=== PATIENT | female | born 1995 | race Caucasian/White ===

== ENCOUNTER 2019-06-09 04:57 | Inpatient (IN) | payer OTHER ==
[2019-06-09] MEDS ORDERED: BICITRA 30 ML CUP PO SCH (05:00)
[2019-06-09] MEDS ORDERED: CEFAZOLIN 2 GM-D5W BAG** 2 GM/50 ML ML IV SCH (05:00)
[2019-06-09] MEDS ORDERED: Reglan 10 MG/2 ML IV SCH (05:00)
[2019-06-09] MEDS ORDERED: Pepcid 20 MG VIAL IV SCH (05:00)
[2019-06-09] MEDS: Lactated Ringers 1,000 ML IV SCH ×2 (05:42→05:43)
[2019-06-09 05:46] LABS: INR 0.98 (0.8-3.0); PROTIME 11.1 SECONDS (9.95-12.35)
[2019-06-09 05:48] LABS: PTT 27.1 SECONDS (25.3-37.0)
[2019-06-09 05:54] LABS: Absolute Neutrophil Ct (ANC) 7.13 (1.4-6.9); BASOPHIL % 0.2 % (0.0-0.4); Basophil (Absolute #) 0.02 (0-0.4); Eosinophil % 1.1 % (0.00-5.0); Eosinophil (Absolute #) 0.11 (0-0.5); Hematocrit 31.6 % (35-47); Hemoglobin 10.1 gm/dl (12.0-16.0); Lymphocyte (Absolute #) 2.33 (1.0-4.6); Lymphocytes % 22.6 % (24.0-44.0); Mean Cell Volume 85.6 fl (78-100); Mean Corpuscular Hemoglobin 27.4 pg (26-32); Mean Platelet Volume 9.4 fl (6-9.5); Monocyte (Absolute #) 0.72 (0.0-1.3); Neutrophil % 69.1 % (36.0-66.0); Platelet Count 264 K/mm3 (150-450); Red Blood Count 3.69 M/mm3 (4.1-5.4); Red Cell Distribution Width 13.9 % (11.5-14.0); White Blood Count 10.3 K/mm3 (4.0-10.5)
[2019-06-09 06:09] LABS: ABO TYPING A; Antibody Screen NEGATIVE (NEGATIVE); RH TYPING POSITIVE
[2019-06-09 06:26] LABS: Amphetamine,Urine NEGATIVE (NEGATIVE); Barbiturate,Urine NEGATIVE (NEGATIVE); Benzodiazepine,Urine NEGATIVE (NEGATIVE); Cocaine,Urine NEGATIVE (NEGATIVE); Methadone,Urine NEGATIVE (NEGATIVE); Opiate,Urine NEGATIVE (NEGATIVE); PCP,Urine NEGATIVE (NEGATIVE); THC,Urine NEGATIVE (NEGATIVE)
[2019-06-09] MEDS ORDERED: Astramorph-Pf 5 MG/10 ML ONE (06:51)
[2019-06-09 06:56] LABS: Appearance SLIGHTLY CLOUDY (CLEAR); Bacteria FEW /HPF (NEGATIVE); Bilirubin NEGATIVE (NEGATIVE); Blood MODERATE Ery/ul (0-5); Epithelial Cells RARE /HPF (FEW); Glucose NEGATIVE (NEGATIVE); Ketones NEGATIVE (NEGATIVE); Leukocyte Esterase NEGATIVE (NEGATIVE); Mucus SLIGHT /HPF (NEGATIVE); Nitrite NEGATIVE (NEGATIVE); Protein,Urine Dip NEGATIVE (Negative); RBC 26-50 /HPF (0-2); Specific Gravity 1.018 (1.005-1.025); Urobilinogen 2 mg/dL (0-1); WBC 0-2 /HPF (0-5)
[2019-06-09] MEDS ORDERED: Xylocaine-Mpf 2% 5 Ml Vial ONE (06:57)
[2019-06-09] MEDS ORDERED: Naropin 0.5% 30 ML VIAL ONE (06:57)
[2019-06-09] MEDS ORDERED: Decadron 4 MG INJ ONE ×2 (06:57→07:02)
[2019-06-09] MEDS ORDERED: Zofran 4 MG/2 ML VIAL ONE (07:02)
[2019-06-09] MEDS ORDERED: Pitocin 10 UNITS/ML ONE (07:02)
[2019-06-09] MEDS ORDERED: DEMEROL 50 MG ONE (08:35)
[2019-06-09] MEDS ORDERED: Lactated Ringers 1,000 ML IV ONE (08:37)
--- NOTE | 2019-06-09 09:06 | OP ---
SURGERY DATE/TIME: 06/09/2019718 PREOPERATIVE DIAGNOSES: 1) Term intrauterine . 2) History of prior section. 3) Isolated elevated blood pressure during . POSTOPERATIVE DIAGNOSES: 1) Term intrauterine . 2) History of prior section. 3) Isolated elevated blood pressure during . PROCEDURE: Repeat low transverse section. SURGEON: Estevan Lau M.D. ESTIMATED BLOOD LOSS: 300 cc. IV FLUIDS: 2 liters of crystalloid. URINE OUTPUT: 50 cc of clear straw-colored urine. ANESTHESIA: Spinal by Daljit Hernadnez CRNA. SPECIMENS: None. DESCRIPTION OF PROCEDURE: After informed written consent was obtained, the patient was taken to the operating room. She was prepped and draped in the usual sterile fashion after she underwent spinal anesthesia. A low transverse skin incision was made by knife and carried down through the subcutaneous fat to the level of the fascia and was nicked on both sides of the midline and extended horizontally using curved Mandel scissors. The superior free edge of the fascia was grasped with Henrik clamps and the underlying rectus muscles were dissected free. The same was repeated inferiorly. The opening of the peritoneal cavity was extended in horizontal fashion and then a bladder blade was inserted and a bladder flap was created and reflected over the lower uterine segment. Uterine incision was made horizontal by knife and carried down to the level of the amniotic membranes which were carefully artificially ruptured. A viable female infant delivered from the vertex presentation with a strong cry immediately upon delivery. The oropharynx and nares were bulb suctioned free on the operative field. The cord was clamped and cut and she was handed off to the awaiting nursery team. The placenta was manually extracted from the uterine cavity and the uterus was exteriorized. The uterine cavity was wiped free of blood and clot with lap sponge. The uterine incision was closed with #1 chromic in a running locked fashion. Good closure and good hemostasis were achieved. The posterior cul-de-sac was wiped free of blood and clot with moist lap sponge and the uterus was returned to the peritoneal cavity. Lateral gutters were wiped free of blood and clot. Again, the uterine incision was inspected and noted to be hemostatic. The fascia was closed with 0 Vicryl in a running fashion. Good closure and good hemostasis were achieved. The subcutaneous fat was then irrigated with warm, sterile saline. Any areas of bleeding were cauterized with electrocautery. Finally, the skin layer was closed with 4-0 undyed Vicryl in a running subcuticular fashion. Steri-Strips and occlusive dressing were placed over the incision. The patient was transferred to the recovery room in good condition.
[2019-06-09 09:13] LABS: Amourphous Crystal FEW /HPF (NEGATIVE); Bacteria RARE /HPF (NEGATIVE); Epithelial Cells RARE /HPF (FEW); Mucus SLIGHT /HPF (NEGATIVE); RBC 26-50 /HPF (0-2); WBC 0-2 /HPF (0-5)
[2019-06-09 09:19] LABS: Appearance CLEAR (CLEAR); Bilirubin NEGATIVE (NEGATIVE); Glucose NEGATIVE (NEGATIVE); Ketones NEGATIVE (NEGATIVE); Leukocyte Esterase NEGATIVE (NEGATIVE); Nitrite NEGATIVE (NEGATIVE); Protein,Urine Dip NEGATIVE (Negative); Urobilinogen 0.2 mg/dL (0-1)
[2019-06-09 09:20] LABS: Blood 250 Ery/ul (0-5)
[2019-06-09] MEDS ORDERED: CORTISONE 1% CREAM TP PRN (10:00)
[2019-06-09] MEDS ORDERED: Dextrose 5%-Lr IV Solution 1000 ML 1,000 ML IV SCH (10:00)
[2019-06-09] MEDS ORDERED: Mylicon 80MG PO PRN (10:00)
[2019-06-09] MEDS ORDERED: MORPHINE SULFATE 2 MG INJ IV PRN (10:00)
[2019-06-09] MEDS ORDERED: Ambien 10 MG PO PRN (10:00)
[2019-06-09] MEDS ORDERED: CLARITIN 10 MG PO PRN (10:00)
[2019-06-09] MEDS ORDERED: PERCOCET TABLET 5/325MG PO PRN (10:00)
[2019-06-09] MEDS ORDERED: HOLD NARCOTIC ANALGESICS AND SEDATIVES X24 HR MC PRN (10:00)
[2019-06-09] MEDS ORDERED: Anucort-HC SUPPOSITORY PR PRN (10:00)
[2019-06-09] MEDS ORDERED: Dulcolax 10 MG SUPP PR PRN (10:00)
[2019-06-09] MEDS ORDERED: LANSINOH 40 GM TOP PRN (10:00)
[2019-06-09] MEDS ORDERED: Narcan 0.4 MG/ML IV PRN (10:00)
[2019-06-09] MEDS ORDERED: Zofran 4 MG/2 ML VIAL IV PRN (10:00)
[2019-06-09] MEDS ORDERED: TYLENOL EXTRA STRENGTH 500 MG PO PRN (10:00)
[2019-06-09] MEDS ORDERED: Nubain 10 MG/ML IV PRN (10:00)
[2019-06-09] MEDS ORDERED: BENADRYL 50 MG/ML IV PRN (10:00)
[2019-06-09] MEDS: Colace 100 MG PO SCH (22:28)
[2019-06-10 06:06] LABS: Absolute Neutrophil Ct (ANC) 11.09 (1.4-6.9); BASOPHIL % 0.1 % (0.0-0.4); Basophil (Absolute #) 0.02 (0-0.4); Eosinophil % 0.3 % (0.00-5.0); Eosinophil (Absolute #) 0.04 (0-0.5); Hematocrit 28.5 % (35-47); Hemoglobin 9.1 gm/dl (12.0-16.0); Lymphocytes % 19.5 % (24.0-44.0); Mean Cell Volume 87.2 fl (78-100); Mean Corpuscular Hemoglobin 27.8 pg (26-32); Mean Corpuscular Hgb Concent. 31.9 g/dl (32-36); Mean Platelet Volume 9.4 fl (7.5-11.0); Monocyte (Absolute #) 1.24 (0.0-1.3); Monocytes % 8.1 % (0.0-12.0); Platelet Count 245 K/mm3 (150-450); Red Blood Count 3.27 M/mm3 (4.1-5.4); Red Cell Distribution Width 13.9 % (11.5-14.0); White Blood Count 15.4 K/mm3 (4.0-10.5)
[2019-06-10] MEDS: Colace 100 MG PO SCH ×2 (09:41→21:54)
[2019-06-10] MEDS: FERREX 150 PO SCH (09:41)
[2019-06-10] MEDS ORDERED: NORCO 5/325 MG PO PRN (10:00)
[2019-06-10] MEDS ORDERED: DEMEROL 50 MG IV PRN (10:00)
[2019-06-10] MEDS: MOTRIN 400 MG PO PRN (18:51)
[2019-06-10 20:07] VITALS: O2SAT 98
[2019-06-11] MEDS: FERREX 150 PO SCH (09:07)
[2019-06-11] MEDS: Colace 100 MG PO SCH (09:07)
[2019-06-11] MEDS: MOTRIN 400 MG PO PRN (11:08)
--- NOTE | 2019-06-11 13:14 | PCM.DS ---
Discharge Summary Date of Admission: 06/09/19 04:57 Admitting Physician: HILARIO AGUILAR Consults: Consults on Case 06/09/19 00:00 Notify Anesthesia Provider PRN Notify Physician OF ADMISSION 06/09/19 10:00 Notify Physician ROUTINE Primary Care Provider: HILARIO AGUILAR Allergies Allergies No Known Drug Allergies Allergy (Verified 11/21/18 10:37) Hospital Summary - Hospital Course Hospital Course: Pt is a 23 yo female pt of Dr. Aguilar who came in as at term for repeat c/ section. For full details, see Dr. Aguilar' operative note. She had no complications, has been recovering well with minimal pain. Up out of bed. . Will be discharged home today on iron and ibuprofen prn. F/u with Dr. Aguilar in 1 week. - Vitals & Intake/Output Vital Signs: Vital Signs Temperature 98.6 F 06/11/19 08:00 Pulse Rate 85 06/11/19 08:00 Respiratory Rate 18 06/11/19 08:00 Blood Pressure 130/68 06/11/19 08:00 O2 Sat by Pulse Oximetry 98 06/11/19 01:00 Intake & Output: Intake & Output 06/09/19 06/10/19 06/11/19 06/12/19 11:59 11:59 11:59 11:59 Intake Total 3789 2150 Output Total 4700 Balance -911 2150 Weight 112.945 kg - Lab Result Diagrams: 06/10/19 05:13 Micro Results-Entire Visit: Microbiology 06/09/19 07:33 Urine Culture - Final Clean Catch Midstream MIXED MEGAN; 3 OR MORE TYPES. NO PREDOMINANT ORGANISM. NO FURTHER WORKUP. PLEASE RESUBMIT IF CLINICALLY INDICATED. 06/09/19 06:07 Urine Culture - Final Urine, Void NO GROWTH - Procedures and Test Procedures and Tests throughout Hospitalization: Therapy Orders & Screens 06/09/19 09:11 Standby Routine Comment: Diagnosis: Post Op Discharge Exam General Appearance: no apparent distress, alert Neurologic Exam: oriented x 3, cooperative Eye Exam: eyes nml inspection Ears, Nose, Throat Exam: moist mucous membranes Neck Exam: normal inspection Respiratory Exam: normal breath sounds, lungs clear, No crackles/rales, No rhonchi, No wheezing Cardiovascular Exam: regular rate/rhythm, normal heart sounds, No murmur Gastrointestinal/Abdomen Exam: soft, other (fundus firm under umbilicus. Wound c/d/i), No tenderness Extremity Exam: normal inspection, No swelling Skin Exam: normal color, warm, dry, No rash Final Diagnosis/Problem List - Final Discharge Diagnosis/Problem (1) delivery delivered Current Visit: No Status: Acute Assessment & Plan: POD #2, doing great, home today with baby. Code(s): O82 - ENCOUNTER FOR DELIVERY WITHOUT INDICATION (2) Anemia Current Visit: Yes Status: Acute Assessment & Plan: Home on FeSO4 325 mg once daily x 1 mo. Code(s): D64.9 - ANEMIA, UNSPECIFIED - Discharge Disposition: Home, Self-Care Condition: Good Prescriptions: New Ferrous Sulfate 325 mg [Feosol 325 mg] 325 mg PO DAILY #30 tablet Ibuprofen 800 mg PO TID PRN #35 tablet PRN Reason: Pain Continue Vit Calc,Iron,Folic [ Vitamins] 1 tab PO DAILY Follow up with: HILARIO AGUILAR MD [Primary Care Provider] - 1 Week
[2019-06-11 14:26] VITALS: BP 140/66; PULSE 95
== END 2019-06-11 13:40 | disposition home or self-care (01) | DRG 788 ==
LOC: OB 04:57
PROVIDERS: ADMIT Family Medicine; ATTEND Family Medicine
PROC: 10D00Z1 Extraction of Products of Conception, Low, Open Approach (ICD-10-PCS; principal; 2019-06-09)
DX: O34.211 Maternal care for low transverse scar from previous cesarean delivery (principal); Z3A.38 38 weeks gestation of pregnancy; Z37.0 Single live birth; D64.9 Anemia, unspecified
CPT/HCPCS: 36415; 64488; 76937; 76942; 80307; 81001; 85025; 85610; 85730; 86850; 86900; 86901; 87086; 87340; 94799; J0690; J1100; J2175; J2274; J2405; J2590; J2795; L0625; A9270-GY

== ENCOUNTER 2020-08-17 19:41 | Emergency (ER) | payer OTHER ==
[2020-08-17] MEDS ORDERED: BENADRYL 50 MG/ML IV ONE (20:05)
[2020-08-17] MEDS ORDERED: PROTONIX 40 MG IV IV ONE ×2 (20:05→20:13)
[2020-08-17] MEDS ORDERED: MORPHINE SULFATE 4 MG INJ IV ONE (20:05)
[2020-08-17] MEDS ORDERED: Zofran 4 MG/2 ML VIAL IV ONE (20:05)
[2020-08-17] MEDS ORDERED: Pepcid 20 MG VIAL IV ONE ×2 (20:05→20:12)
[2020-08-17] MEDS ORDERED: Sodium Chloride 0.9% 1000 ML 1,000 ML IV STA (20:05)
[2020-08-17] MEDS ORDERED: TORAdol 30 mg Injection IV ONE (20:08)
[2020-08-17] MEDS ORDERED: Norflex 60 MG/2 ML IM ONE (20:08)
[2020-08-17] MEDS ORDERED: BENADRYL 50 MG/ML ONE (20:12)
[2020-08-17] MEDS ORDERED: Zofran 4 MG/2 ML VIAL ONE (20:12)
[2020-08-17] MEDS ORDERED: TORAdol 30 mg Injection ONE (20:12)
[2020-08-17] MEDS ORDERED: Norflex 60 MG/2 ML ONE (20:13)
[2020-08-17] MEDS ORDERED: MORPHINE SULFATE 4 MG INJ ONE (20:13)
[2020-08-17] MEDS ORDERED: Sodium Chloride 0.9% 1000 ML 1,000 ML ONE (20:13)
--- NOTE | 2020-08-17 20:18 | ERPHSYRPT ---
- History of Present Illness Time Seen by Provider: 08/17/20 20:13 Historian: patient Exam Limitations: no limitations Patient Subjective Stated Complaint: Right upper abdomen into flank area hurts. Triage Nursing Assessment: Alert and oriented x 3. Able to voice wants and needs. Tearful. Right abdomen painful upon palpation. Right upper back painful. Guarding abdomen. Bowel sounds present x 4. quads. Physician History: pt had onset of RUQ abd pain radiating into back and right chest . no cough fever or sobreath. No vomiting but does also have right lateral flank and back pain . no trauma. spine is nontender. no IV drug use reported. No prior events of these symptoms. RUQ is tender and right flank tender . discussed risk/benefit of CT and pt wishes to proceed. no peritoneal signs. no neuro deficits or findings; lungs clear. no reported discharge or vag symptoms. denies urinary symptoms. Timing/Duration: today Activities at Onset: none Quality: sharpness, stabbing, throbbing Abdominal Pain Onset Location: RUQ Pain Radiation: RUQ, back, other (right lateral chest with muscle tenderness reporducing) Severity of Pain-Max: moderate Severity of Pain-Current: moderate Modifying Factors: Improves With: movement, position Associated Symptoms: back, nausea, No diaphoresis, No diarrhea, No neck pain, No rash, No shortness of breath, No vomiting Previous symptoms: no prior history Allergies/Adverse Reactions: No Known Drug Allergies Allergy (Verified 11/21/18 10:37) Home Medications: Multivitamin 1 each PO DAILY 08/17/20 [History] Hx Tetanus, Diphtheria Vaccination/Date Given: Yes Hx Influenza Vaccination/Date Given: No Hx Pneumococcal Vaccination/Date Given: No Travel Risk - International Travel Have you traveled outside of the country in past 3 weeks: No - Coronavirus Screening Are you exhibiting any of the following symptoms?: No - Review of Systems Constitutional: No Fever, No Chills Eyes: No Symptoms Ears, Nose, & Throat: No Symptoms Respiratory: No Cough, No Dyspnea Cardiac: No Chest Pain, No Edema, No Syncope Abdominal/Gastrointestinal: Abdominal Pain, Nausea, No Vomiting, No Diarrhea Genitourinary Symptoms: No Dysuria Musculoskeletal: Back Pain, No Neck Pain Skin: No Rash Neurological: No Dizziness, No Focal Weakness, No Sensory Changes Psychological: No Symptoms Endocrine: No Symptoms Hematologic/Lymphatic: No Symptoms Immunological/Allergic: No Symptoms All Other Systems: Reviewed and Negative - Past Medical History Pertinent Past Medical History: No Neurological History: No Pertinent History ENT History: No Pertinent History Cardiac History: No Pertinent History Respiratory History: No Pertinent History Endocrine Medical History: No Pertinent History Musculoskeletal History: No Pertinent History GI Medical History: No Pertinent History History: No Pertinent History Psycho-Social History: No Pertinent History Female Reproductive Disorders: No Pertinent History - Past Surgical History Past Surgical History: Yes Neuro Surgical History: No Pertinent History Cardiac: No Pertinent History Respiratory: No Pertinent History Gastrointestinal: No Pertinent History Genitourinary: No Pertinent History Musculoskeletal: No Pertinent History Female Surgical History: Section - Social History Smoking Status: Never smoker Exposure to second hand smoke: No Drug Use: none Patient Lives Alone: No - Female History Hx Now: No (await HCG) - Nursing Vital Signs Nursing Vital Signs: Initial Vital Signs Temperature 98.4 F 08/17/20 19:41 Pulse Rate 87 08/17/20 19:41 Respiratory Rate 24 08/17/20 19:41 Blood Pressure 133/90 08/17/20 19:41 O2 Sat by Pulse Oximetry 100 08/17/20 19:41 Pain Scale Pain Intensity 10 - Physical Exam General Appearance: mild distress, alert Eye Exam: PERRL/EOMI, eyes nml inspection Ears, Nose, Throat Exam: normal ENT inspection, pharynx normal, moist mucous membranes Neck Exam: normal inspection, non-tender, supple, full range of motion Respiratory Exam: normal breath sounds, chest tenderness (right lateral), lungs clear, No respiratory distress Cardiovascular Exam: regular rate/rhythm, normal heart sounds Gastrointestinal/Abdomen Exam: soft, tenderness, No mass, No pulsatile mass, No rebound Pelvic Exam: deferred Rectal Exam: deferred Back Exam: normal inspection, normal range of motion, No CVA tenderness, No vertebral tenderness Extremity Exam: normal inspection, normal range of motion, pelvis stable Neurologic Exam: alert, oriented x 3, cooperative, normal mood/affect, nml cerebellar function, sensation nml, No motor deficits Skin Exam: normal color, warm, dry SpO2 Interpretation: normal SpO2: 100 O2 Delivery: Room Air - Course Nursing assessment & vital signs reviewed: Yes - Radiology Exams Chest X-ray Interpretation: Reviewed by me, Other (perihilar haziness , no definte infiltrates.) - CT Exams Abdomen/Pelvis CT Interpretation: Tele-radiologist Report, No appendicitis, Other (kidney stone nonobst; gallstone without cholecystitis) Ordered Tests: Active Orders 24 hr Category Date Time Status IV Insertion STAT Care 08/17/20 20:05 Active NPO (ED) STAT Care 08/17/20 20:05 Active ABDOMEN AND PELVIS W/0 CONTRAS [CT] Stat Exams 08/17/20 20:06 Taken CHEST 2 VIEWS (PA AND LAT) Stat Exams 08/17/20 20:06 Taken AMYLASE Stat Lab 08/17/20 20:10 Completed CBC W DIFF Stat Lab 08/17/20 20:10 Completed CMP Stat Lab 08/17/20 20:10 Completed HCG QUALITATIVE,SERUM Stat Lab 08/17/20 20:10 Completed LIPASE Stat Lab 08/17/20 20:10 Completed Lactic Acid Stat Lab 08/17/20 20:20 Completed UA W/RFX UR CULTURE Stat Lab 08/17/20 20:10 Completed Medication Summary Discontinued Medications Generic Name Dose Route Start Last Admin Trade Name Freq PRN Reason Stop Dose Admin Diphenhydramine HCl 25 mg 08/17/20 20:05 08/17/20 20:27 Benadryl 50 Mg/Ml IV 08/17/20 20:06 25 mg STAT ONE Administration Diphenhydramine HCl Confirm 08/17/20 20:12 Benadryl 50 Mg/Ml Administered 08/17/20 20:13 Dose 50 mg .ROUTE .STK-MED ONE Famotidine 20 mg 08/17/20 20:05 08/17/20 20:26 Pepcid 20 Mg Vial IV 08/17/20 20:06 20 mg STAT ONE Administration Famotidine Confirm 08/17/20 20:12 Pepcid 20 Mg Vial Administered 08/17/20 20:13 Dose 20 mg IV .STK-MED ONE Sodium Chloride 1,000 mls @ 999 mls/hr 08/17/20 20:05 08/17/20 20:25 Sodium Chloride 0.9% 1000 Ml IV 08/17/20 21:05 999 mls/hr .Q1H1M STA Administration Sodium Chloride Confirm 08/17/20 20:13 Sodium Chloride 0.9% 1000 Ml Administered 08/17/20 20:14 Dose 1,000 mls @ ud .ROUTE .STK-MED ONE Ketorolac Tromethamine 30 mg 08/17/20 20:08 08/17/20 20:26 Toradol 30 Mg Injection IV 08/17/20 20:09 30 mg STAT ONE Administration Ketorolac Tromethamine Confirm 08/17/20 20:12 Toradol 30 Mg Injection Administered 08/17/20 20:13 Dose 30 mg .ROUTE .STK-MED ONE Morphine Sulfate 4 mg 08/17/20 20:05 08/17/20 20:26 Morphine Sulfate 4 Mg Inj IV 08/17/20 20:06 4 mg STAT ONE Administration Morphine Sulfate Confirm 08/17/20 20:13 Morphine Sulfate 4 Mg Inj Administered 08/17/20 20:14 Dose 4 mg .ROUTE .STK-MED ONE Ondansetron HCl 4 mg 08/17/20 20:05 08/17/20 20:27 Zofran 4 Mg/2 Ml Vial IV 08/17/20 20:06 4 mg STAT ONE Administration Ondansetron HCl Confirm 08/17/20 20:12 Zofran 4 Mg/2 Ml Vial Administered 08/17/20 20:13 Dose 4 mg .ROUTE .STK-MED ONE Orphenadrine Citrate 60 mg 08/17/20 20:08 08/17/20 20:26 Norflex 60 Mg/2 Ml IM 08/17/20 20:09 60 mg STAT ONE Administration Orphenadrine Citrate Confirm 08/17/20 20:13 Norflex 60 Mg/2 Ml Administered 08/17/20 20:14 Dose 60 mg .ROUTE .STK-MED ONE Pantoprazole Sodium 40 mg 08/17/20 20:05 08/17/20 20:25 Protonix 40 Mg Iv IV 08/17/20 20:06 40 mg STAT ONE Administration Pantoprazole Sodium Confirm 08/17/20 20:13 Protonix 40 Mg Iv Administered 08/17/20 20:14 Dose 40 mg IV .STK-MED ONE Lab/Rad Data: Laboratory Result Diagrams 08/17/20 20:10 08/17/20 20:10 Laboratory Results 08/17/20 08/17/20 08/17/20 Range/Units 20:20 20:10 20:10 WBC (4.0-10.5) K/mm3 RBC (4.1-5.4) M/mm3 Hgb (12.0-16.0) gm/dl Hct (35-47) % MCV (78-100) fl MCH (26-32) pg MCHC (32-36) g/dl RDW (11.5-14.0) % Plt Count (150-450) K/mm3 MPV (7.5-11.0) fl Gran % (36.0-66.0) % Eos # (Auto) (0-0.5) Absolute Lymphs (auto) (1.0-4.6) Absolute Monos (auto) (0.0-1.3) Lymphocytes % (24.0-44.0) % Monocytes % (0.0-12.0) % Eosinophils % (0.00-5.0) % Basophils % (0.0-0.4) % Absolute Granulocytes (1.4-6.9) Basophils # (0-0.4) Sodium 139 (137-145) mmol/L Potassium 4.0 (3.5-5.1) mmol/L Chloride 103 (98-107) mmol/L Carbon Dioxide 28 (22-30) mmol/L Anion Gap 12.4 (5-15) MEQ/L BUN 15 (7-17) mg/dL Creatinine 0.82 (0.52-1.04) mg/dL Estimated GFR > 60.0 ML/MIN Glucose 116 H (74-106) mg/dL Lactic Acid 1.1 (0.4-2.0) Calcium 9.9 (8.4-10.2) mg/dL Total Bilirubin 0.20 (0.2-1.3) mg/dL AST 22 (14-36) U/L ALT 24 (0-35) U/L Alkaline Phosphatase 85 (38-126) U/L Serum Total Protein 8.0 (6.3-8.2) g/dL Albumin 4.8 (3.5-5.0) g/dL Amylase 52 (30-110) U/L Lipase 80 (23-300) U/L Serum , Qual NEGATIVE (Negative) Urine Color (YELLOW) Urine Appearance (CLEAR) Urine pH (5-6) Ur Specific [place] (1.005-1.025) Urine Protein (Negative) Urine Ketones (NEGATIVE) Urine Blood (0-5) Santos/ul Urine Nitrite (NEGATIVE) Urine Bilirubin (NEGATIVE) Urine Urobilinogen (0-1) mg/dL Ur Leukocyte Esterase (NEGATIVE) Urine WBC (Auto) (0-5) /HPF Urine RBC (Auto) (0-2) /HPF U Epithel Cells (Auto) (FEW) /HPF Urine Bacteria (Auto) (NEGATIVE) /HPF Urine Mucus (Auto) (NEGATIVE) /HPF Urine Culture Reflexed (NO) Urine Glucose (NEGATIVE) mg/dL 08/17/20 08/17/20 Range/Units 20:10 20:10 WBC 12.9 H (4.0-10.5) K/mm3 RBC 4.64 (4.1-5.4) M/mm3 Hgb 12.5 (12.0-16.0) gm/dl Hct 39.0 (35-47) % MCV 84.1 (78-100) fl MCH 26.9 (26-32) pg MCHC 32.1 (32-36) g/dl RDW 14.2 H (11.5-14.0) % Plt Count 347 (150-450) K/mm3 MPV 9.3 (7.5-11.0) fl Gran % 58.1 (36.0-66.0) % Eos # (Auto) 0.14 (0-0.5) Absolute Lymphs (auto) 4.37 (1.0-4.6) Absolute Monos (auto) 0.88 (0.0-1.3) Lymphocytes % 33.8 (24.0-44.0) % Monocytes % 6.8 (0.0-12.0) % Eosinophils % 1.1 (0.00-5.0) % Basophils % 0.2 (0.0-0.4) % Absolute Granulocytes 7.51 H (1.4-6.9) Basophils # 0.02 (0-0.4) Sodium (137-145) mmol/L Potassium (3.5-5.1) mmol/L Chloride (98-107) mmol/L Carbon Dioxide (22-30) mmol/L Anion Gap (5-15) MEQ/L BUN (7-17) mg/dL Creatinine (0.52-1.04) mg/dL Estimated GFR ML/MIN Glucose (74-106) mg/dL Lactic Acid (0.4-2.0) Calcium (8.4-10.2) mg/dL Total Bilirubin (0.2-1.3) mg/dL AST (14-36) U/L ALT (0-35) U/L Alkaline Phosphatase (38-126) U/L Serum Total Protein (6.3-8.2) g/dL Albumin (3.5-5.0) g/dL Amylase (30-110) U/L Lipase (23-300) U/L Serum , Qual (Negative) Urine Color YELLOW (YELLOW) Urine Appearance SLIGHTLY CLOUDY (CLEAR) Urine pH 6.0 (5-6) Ur Specific [place] 1.024 (1.005-1.025) Urine Protein NEGATIVE (Negative) Urine Ketones NEGATIVE (NEGATIVE) Urine Blood NEGATIVE (0-5) Santos/ul Urine Nitrite NEGATIVE (NEGATIVE) Urine Bilirubin NEGATIVE (NEGATIVE) Urine Urobilinogen NEGATIVE (0-1) mg/dL Ur Leukocyte Esterase NEGATIVE (NEGATIVE) Urine WBC (Auto) NONE (0-5) /HPF Urine RBC (Auto) 3-5 (0-2) /HPF U Epithel Cells (Auto) RARE (FEW) /HPF Urine Bacteria (Auto) NONE (NEGATIVE) /HPF Urine Mucus (Auto) SLIGHT (NEGATIVE) /HPF Urine Culture Reflexed NO (NO) Urine Glucose NEGATIVE (NEGATIVE) mg/dL - Progress Progress: improved, re-examined Progress Note: 08/17/20 22:39 pt is advised of the limitations of testing performed and that undetected pathology could still be evolving. she understands that we have not yet determined the exact cause of her symptoms, but - is pain free now , and wishes outpt f/u rather than further eval in hosp or ED at this time and has the capacity to make that choice. Counseled pt/family regarding: lab results, diagnosis, need for follow-up, rad results - Departure Departure Disposition: Home Clinical Impression: Right-sided chest wall pain, Right kidney stone, Cholelithiasis Condition: Good Critical Care Time: No Referrals: HILARIO AGUILAR MD [Primary Care Provider] - Instructions: Gallstones (DC), Kidney Stones (DC), Muscle Strain (DC), Back Muscle Strain (DC) Additional Instructions: we have not determined a precise cause for your pain, although there are gallstones and kidney stones which may have contributed. THere may have been muscle pain from your back or ribs also and the muscle relaxer will help that as well as alleve. Followup with your Dr. for further workup and return meantime if recurring or other symptoms of concern. Prescriptions: Orphenadrine Citrate 100 mg [Norflex 100 MG Tablet] 100 mg PO BID PRN PRN 10 Days #20 tab PRN Reason: Pain
[2020-08-17 20:29] LABS: Absolute Neutrophil Ct (ANC) 7.51 (1.4-6.9); BASOPHIL % 0.2 % (0.0-0.4); Basophil (Absolute #) 0.02 (0-0.4); Eosinophil % 1.1 % (0.00-5.0); Eosinophil (Absolute #) 0.14 (0-0.5); Hemoglobin 12.5 gm/dl (12.0-16.0); Lymphocyte (Absolute #) 4.37 (1.0-4.6); Lymphocytes % 33.8 % (24.0-44.0); Mean Cell Volume 84.1 fl (78-100); Mean Corpuscular Hemoglobin 26.9 pg (26-32); Mean Corpuscular Hgb Concent. 32.1 g/dl (32-36); Mean Platelet Volume 9.3 fl (7.5-11.0); Monocyte (Absolute #) 0.88 (0.0-1.3); Monocytes % 6.8 % (0.0-12.0); Neutrophil % 58.1 % (36.0-66.0); Platelet Count 347 K/mm3 (150-450); Red Blood Count 4.64 M/mm3 (4.1-5.4); Red Cell Distribution Width 14.2 % (11.5-14.0); White Blood Count 12.9 K/mm3 (4.0-10.5)
[2020-08-17 20:37] LABS: Appearance SLIGHTLY CLOUDY (CLEAR); Bilirubin NEGATIVE (NEGATIVE); Blood NEGATIVE Ery/ul (0-5); Epithelial Cells RARE /HPF (FEW); Glucose NEGATIVE (NEGATIVE); Ketones NEGATIVE (NEGATIVE); Leukocyte Esterase NEGATIVE (NEGATIVE); Mucus SLIGHT /HPF (NEGATIVE); Nitrite NEGATIVE (NEGATIVE); Protein,Urine Dip NEGATIVE (Negative); Specific Gravity 1.024 (1.005-1.025); Urobilinogen NEGATIVE mg/dL (0-1)
[2020-08-17 20:43] LABS: ALBUMIN 4.8 g/dL (3.5-5.0); ALKALINE PHOSPHATASE 85 U/L (38-126); AMYLASE 52 U/L (30-110); ANION GAP 12.4 MEQ/L (5-15); BLOOD UREA NITROGEN 15 mg/dL (7-17); CHLORIDE 103 mmol/L (98-107); Calcium 9.9 mg/dL (8.4-10.2); Carbon Dioxide 28 mmol/L (22-30); Creatinine 1 0.82 mg/dL (0.52-1.04); EST GLOMERULAR FILTRATION RATE > 60.0 ML/MIN; Glucose 116 mg/dL (74-106); LIPASE 80 U/L (23-300); SGOT/AST 22 U/L (14-36); SGPT/ALT 24 U/L (0-35); SODIUM 139 mmol/L (137-145)
[2020-08-17 22:54] VITALS: BP 99/57; PULSE 94; O2SAT 99
--- NOTE | 2020-08-18 07:46 | XRAY ---
Indication: Right chest pain. Comparison: March 30, 2009. PA/lateral chest demonstrates normal heart, lungs, and bony thorax.
--- NOTE | 2020-08-18 07:46 | XRAY ---
Indication: Right upper quadrant pain. Nausea. Elevated WBC. Multiple contiguous axial images obtained through the abdomen and pelvis without contrast. Comparison: January 10, 2016. Lung bases are clear. Heart is not enlarged. Stomach is mildly fluid distended with presumed ingested medication/bismuth. Noncontrasted bowel loops appear nonobstructed. Normal appendix. There is again mild diffuse scattered colonic fecal debris throughout. Gallbladder again demonstrates multiple centimeter/subcentimeter stones. Stable nonobstructing punctate right renal calculus. No free fluid/air. Remaining liver, pancreas, spleen, adrenal glands, kidneys, ureters, bladder, uterus, and aorta appear unremarkable for noncontrast exam. Osseous structures intact. No ventral or inguinal hernias. Impression: 1. Again cholelithiasis. Gallbladder sonogram may yield further information if clinically warranted. 2. Again diffuse fecal stasis without obstruction and nonobstructing right renal microcalculus. Comment: Preliminary interpretation was made by [facility]. No critical discrepancy.
== END 2020-08-17 23:04 | disposition home or self-care (01) ==
LOC: ED 19:41
DX: R07.89 Other chest pain (principal); N20.0 Calculus of kidney; K80.20 Calculus of gallbladder without cholecystitis without obstruction
CPT/HCPCS: 36000; 36415; 71046; 74176; 80053; 81001; 81025; 82150; 83605; 83690; 85025; 96372; 96374; 96375; 99284; J1200; J1885; J2270; J2360; J2405

== ENCOUNTER 2021-03-10 09:56 | Emergency (ER) | payer OTHER ==
[2021-03-10] MEDS ORDERED: TORAdol 30 mg Injection IV ONE (10:05)
[2021-03-10] MEDS ORDERED: Zofran 4 MG/2 ML VIAL ONE (10:11)
[2021-03-10] MEDS ORDERED: TORAdol 30 mg Injection ONE (10:11)
[2021-03-10] MEDS ORDERED: Zofran 4 MG/2 ML VIAL IV ONE (10:13)
--- NOTE | 2021-03-10 10:33 | ERPHSYRPT ---
- History of Present Illness Historian: patient Exam Limitations: no limitations Patient Subjective Stated Complaint: co pain to right side of abd today with vomiting x2 Triage Nursing Assessment: pt alert resp easy, skin w/dp. abd soft , abd soft Physician History: 25 yo wf w R flank pain since 4:00AM. Pain is 8/10, sharp, accompanied by N/V. Nothing makes the pain better or worse. She denies dysuria/hematuria/frequency/fever/diarrhea/constipation/melena hematochezia. Her gallbladder has been removed. Timing/Duration: other (4:00AM) Quality: sharpness Abdominal Pain Onset Location: other (R flank) Pain Radiation: no radiation Severity of Pain-Max: severe Severity of Pain-Current: severe Modifying Factors: Improves With: nothing Associated Symptoms: back, nausea, vomiting, No chest pain, No diaphoresis, No diarrhea, No fever/chills, No fatigue, No headache, No heartburn, No loss of appetite, No neck pain, No rash, No shortness of breath, No syncope, No weakness Previous symptoms: same symptoms as today (W cholelithiasis(s-p oskar)) Allergies/Adverse Reactions: No Known Drug Allergies Allergy (Verified 03/10/21 09:59) Hx Tetanus, Diphtheria Vaccination/Date Given: Yes Hx Influenza Vaccination/Date Given: No Hx Pneumococcal Vaccination/Date Given: No Immunizations Up to Date: Yes Travel Risk - International Travel Have you traveled outside of the country in past 3 weeks: No - Coronavirus Screening Are you exhibiting any of the following symptoms?: No Symptoms: Shortness of Breath Close contact with a COVID-19 positive Pt in past 14-21 Days: No - Vaccine Status Have you recieved a Covid-19 vaccination: No - Review of Systems Constitutional: No Symptoms Eyes: No Symptoms Ears, Nose, & Throat: No Symptoms Respiratory: No Symptoms Cardiac: No Symptoms Abdominal/Gastrointestinal: Nausea, Vomiting, No Diarrhea, No Constipation, No Hematemesis, No Hematochezia, No Melena, No Dysphagia, No Appetite Changes Genitourinary Symptoms: No Symptoms Musculoskeletal: No Symptoms Skin: No Symptoms Neurological: No Symptoms Psychological: No Symptoms Endocrine: No Symptoms Hematologic/Lymphatic: No Symptoms Immunological/Allergic: No Symptoms - Past Medical History Pertinent Past Medical History: No Neurological History: No Pertinent History ENT History: No Pertinent History Cardiac History: No Pertinent History Respiratory History: No Pertinent History Endocrine Medical History: No Pertinent History Musculoskeletal History: No Pertinent History GI Medical History: No Pertinent History History: No Pertinent History Psycho-Social History: No Pertinent History Female Reproductive Disorders: No Pertinent History - Past Surgical History Past Surgical History: Yes Neuro Surgical History: No Pertinent History Cardiac: No Pertinent History Respiratory: No Pertinent History Gastrointestinal: Cholecystectomy Genitourinary: No Pertinent History Musculoskeletal: No Pertinent History Female Surgical History: Section - Social History Smoking Status: Never smoker Exposure to second hand smoke: No Drug Use: none Patient Lives Alone: No Significant Family History: no pertinent family hx - Female History Hx Last Menstrual Period: year ago Hx Now: No - Nursing Vital Signs Nursing Vital Signs: Initial Vital Signs Temperature 96.1 F 03/10/21 10:01 Pain Scale Pain Intensity 0 - Physical Exam General Appearance: no apparent distress Eye Exam: PERRL/EOMI, eyes nml inspection Ears, Nose, Throat Exam: normal ENT inspection, TMs normal, pharynx normal, moist mucous membranes Neck Exam: normal inspection, non-tender, supple, full range of motion, No menin gismus, No mass, No Brudzinski, No Kernig's Respiratory Exam: normal breath sounds, lungs clear, airway intact, No chest tenderness, No respiratory distress Cardiovascular Exam: regular rate/rhythm, normal heart sounds, normal peripheral pulses, No murmur Gastrointestinal/Abdomen Exam: soft, normal bowel sounds, No tenderness, No distention, No mass, No guarding, No ecchymosis, No pulsatile mass, No rebound Back Exam: CVA tenderness (R mild) Extremity Exam: normal inspection, normal range of motion Neurologic Exam: alert, oriented x 3, cooperative, production support specialist II-XII nml as tested, normal mood/affect, nml cerebellar function, nml station & gait, sensation nml, No motor deficits, No sensory deficit Skin Exam: normal color, warm, dry, No rash Lymphatic Exam: No adenopathy - Course Nursing assessment & vital signs reviewed: Yes - CT Exams Abdomen/Pelvis CT Interpretation: Discussed w/radiologist (CT ab-pelvis wo-R hydronephrosis/4mm stone in bladder) Ordered Tests: Active Orders 24 hr Category Date Time Status ABDOMEN AND PELVIS W/0 CONTRAS [CT] Stat Exams 03/10/21 11:31 Completed HCG,QUALITATIVE URINE Stat Lab 03/10/21 10:30 Completed UA W/RFX UR CULTURE Stat Lab 03/10/21 10:30 Completed Medication Summary Discontinued Medications Generic Name Dose Route Start Last Admin Trade Name Solomon PRN Reason Stop Dose Admin Ketorolac Tromethamine 30 mg 03/10/21 10:05 03/10/21 10:17 Toradol 30 Mg Injection IV 03/10/21 10:06 30 mg STAT ONE Administration Ketorolac Tromethamine Confirm 03/10/21 10:11 Toradol 30 Mg Injection Administered 03/10/21 10:12 Dose 30 mg .ROUTE .STK-MED ONE Ondansetron HCl 4 mg 03/10/21 10:13 03/10/21 10:17 Zofran 4 Mg/2 Ml Vial IV 03/10/21 10:14 4 mg STAT ONE Administration Ondansetron HCl Confirm 03/10/21 10:11 Zofran 4 Mg/2 Ml Vial Administered 03/10/21 10:12 Dose 4 mg .ROUTE .STK-MED ONE Lab/Rad Data: Laboratory Results 03/10/21 03/10/21 Range/Units 10:30 10:30 Urine Color YELLOW (YELLOW) Urine Appearance SLIGHTLY CLOUDY (CLEAR) Urine pH 5.0 (5-6) Ur Specific [place] 1.024 (1.005-1.025) Urine Protein NEGATIVE (Negative) Urine Ketones NEGATIVE (NEGATIVE) Urine Blood LARGE (0-5) Santos/ul Urine Nitrite NEGATIVE (NEGATIVE) Urine Bilirubin NEGATIVE (NEGATIVE) Urine Urobilinogen NEGATIVE (0-1) mg/dL Ur Leukocyte Esterase NEGATIVE (NEGATIVE) Urine WBC (Auto) 3-5 (0-5) /HPF Urine RBC (Auto) >101 (0-2) /HPF U Epithel Cells (Auto) FEW (FEW) /HPF Urine Bacteria (Auto) NONE SEEN (NEGATIVE) /HPF Urine Mucus (Auto) SLIGHT (NEGATIVE) /HPF Urine Culture Reflexed NO (NO) Urine Glucose NEGATIVE (NEGATIVE) mg/dL Urine HCG, Qual NEGATIVE (Negative) - Progress Progress: improved Progress Note: 03/10/21 12:17 Pt painfree after 30mg IV Toradol Counseled pt/family regarding: lab results, diagnosis, need for follow-up, rad results - Departure Departure Disposition: Home Clinical Impression: Ureterolithiasis Condition: Stable Critical Care Time: No Instructions: Kidney Stones (DC) Additional Instructions: Strain all urine Start Bactrim twice a day for 3 days Return to ER for increasing pain or temperature greater than 100.5 Follow up with your family MD Prescriptions: Sulfamethoxazole/Trimethoprim [Bactrim Ds Tablet] 1 each PO BID 3 Days #6 tablet
[2021-03-10 11:17] LABS: Appearance SLIGHTLY CLOUDY (CLEAR); Bilirubin NEGATIVE (NEGATIVE); Blood LARGE Ery/ul (0-5); Epithelial Cells FEW /HPF (FEW); Glucose NEGATIVE (NEGATIVE); Ketones NEGATIVE (NEGATIVE); Leukocyte Esterase NEGATIVE (NEGATIVE); Mucus SLIGHT /HPF (NEGATIVE); Nitrite NEGATIVE (NEGATIVE); Protein,Urine Dip NEGATIVE (Negative); Specific Gravity 1.024 (1.005-1.025); Urobilinogen NEGATIVE mg/dL (0-1)
[2021-03-10 11:19] LABS: Bacteria NONE SEEN /HPF (NEGATIVE); RBC >101 /HPF (0-2)
--- NOTE | 2021-03-10 12:00 | XRAY ---
Indication: Right abdomen/flank pain. Immature. Vomiting. Multiple contiguous axial images obtained through the abdomen and pelvis without contrast using renal stone protocol. Comparison: August 17, 2020. Lung bases demonstrates minimal dependent atelectasis. No infiltrate or effusion. Heart not enlarged. Urinary bladder demonstrates new midline 4 mm calculus posteriorly. Also new moderate right-sided hydronephrosis and mild hydroureter presumed from recent passage of calculus. Left system negative for renal calculus or evidence for obstructive uropathy. Noncontrasted stomach and bowel loops nonobstructed. Normal appendix. Interval cholecystectomy. No free fluid/air. Remaining liver, pancreas, spleen, adrenal glands, kidneys, ureters, bladder, uterus, and aorta appear unremarkable for noncontrast exam. Osseous structures intact. Impression: New right-sided hydronephrosis, right hydroureter, and 4 mm urinary bladder calculus.
[2021-03-10 12:23] VITALS: BP 129/83; PULSE 68; O2SAT 98
== END 2021-03-10 12:32 | disposition home or self-care (01) ==
LOC: ED 09:56
DX: N13.2 Hydronephrosis with renal and ureteral calculous obstruction (principal)
CPT/HCPCS: 36000; 74176; 81001; 84703; 96374; 96375; 99284; J1885; J2405

== ENCOUNTER 2022-11-18 04:14 | Inpatient (IN) | payer OTHER ==
[2022-11-18 04:49] LABS: Absolute Neutrophil Ct (ANC) 5.87 x10^3/uL (1.4-6.9); BASOPHIL % 0.3 % (0.0-0.4); Basophil (Absolute #) 0.03 x10^3/uL (0-0.4); Eosinophil % 1.6 % (0.00-5.0); Eosinophil (Absolute #) 0.15 x10^3/uL (0-0.5); Hematocrit 33.7 % (35-47); Hemoglobin 11.4 g/dL (12.0-16.0); IMMATURE GRAN # 0.04 x10^3u/L (0.00-0.03); IMMATURE GRAN % 0.4 % (0.00-0.4); Lymphocyte (Absolute #) 2.83 x10^3/uL (1.0-4.6); Lymphocytes % 29.6 % (24.0-44.0); Mean Cell Volume 88.5 fL (78-100); Mean Corpuscular Hemoglobin 29.9 pg (26-32); Mean Corpuscular Hgb Concent. 33.8 g/dL (32-36); Mean Platelet Volume 8.9 fL (7.5-11.0); Monocyte (Absolute #) 0.65 x10^3/uL (0.0-1.3); Monocytes % 6.8 % (0.0-12.0); Neutrophil % 61.3 % (36.0-66.0); Platelet Count 245 x10^3/uL (150-450); Red Blood Count 3.81 x10^6/uL (4.1-5.4); Red Cell Distribution Width 13.2 % (11.5-14.0); White Blood Count 9.6 x10^3/uL (4.0-10.5)
[2022-11-18 04:57] LABS: Appearance Clear (Clear); Bacteria None Seen /HPF (None Seen); Bilirubin Negative (Negative); Blood Negative (Negative); Epithelial Cells Rare /HPF (None Seen); Glucose, Urine Negative (Negative); Hyaline Casts NONE SEEN /LPF (0-2); Ketones Negative (Negative); Leukocyte Esterase Negative (Negative); Nitrite Negative (Negative); Protein,Urine Dip Negative (Negative); Specific Gravity 1.015 (1.005-1.030); Urobilinogen 0.2 mg/dL (0.2)
[2022-11-18] MEDS ORDERED: Lactated Ringers 1,000 ML IV ONE (05:00)
[2022-11-18] MEDS ORDERED: Zofran 4 MG/2 ML VIAL IV PRN (05:00)
[2022-11-18 05:08] LABS: Amphetamine,Urine NEGATIVE (NEGATIVE); Barbiturate,Urine NEGATIVE (NEGATIVE); Benzodiazepine,Urine NEGATIVE (NEGATIVE); Cocaine,Urine NEGATIVE (NEGATIVE); Methadone,Urine NEGATIVE (NEGATIVE); Opiate,Urine NEGATIVE (NEGATIVE); PCP,Urine NEGATIVE (NEGATIVE); THC,Urine NEGATIVE (NEGATIVE)
[2022-11-18 05:08] LABS: INR 0.85 (0.8-3.0); PROTIME 9.4 SECONDS (9.4-12.5); PTT 23.8 SECONDS (25.1-36.5)
[2022-11-18 05:15] LABS: ADD URINE CULTURE? NO (NO)
[2022-11-18 05:39] LABS: ABO TYPING A; Antibody Screen NEGATIVE (NEGATIVE); RH TYPING POSITIVE
[2022-11-18] MEDS: Lactated Ringers 1,000 ML IV SCH ×2 (06:49→12:41)
[2022-11-18] MEDS: SOD CITRATE-CITRIC ACID SOLN PO SCH ×2 (06:56→06:58)
[2022-11-18] MEDS ORDERED: Pepcid 20 MG VIAL IV SCH (07:00)
[2022-11-18] MEDS ORDERED: CEFAZOLIN 2 GM-D5W BAG** 2 GM/50 ML ML IV SCH (07:00)
[2022-11-18] MEDS ORDERED: Reglan 10 MG/2 ML IV SCH (07:00)
[2022-11-18] MEDS ORDERED: Astramorph-Pf 5 MG/10 ML ONE (08:04)
[2022-11-18] MEDS ORDERED: Pitocin 10 UNITS/ML ONE ×3 (08:43→08:53)
[2022-11-18] MEDS ORDERED: Marcaine 0.5%/Epinephrine 10 ML ONE (08:57)
[2022-11-18] MEDS ORDERED: MORPHINE SULFATE 2 MG INJ IV PRN (09:00)
[2022-11-18] MEDS ORDERED: Narcan 0.4 MG/ML IV PRN (09:00)
[2022-11-18] MEDS ORDERED: HOLD NARCOTIC ANALGESICS AND SEDATIVES X24 HR MC PRN (09:00)
[2022-11-18] MEDS ORDERED: PERCOCET TABLET 5/325MG PO PRN (09:00)
[2022-11-18] MEDS ORDERED: DEMEROL 50 MG IV PRN (09:00)
[2022-11-18] MEDS ORDERED: BENADRYL 50 MG/ML IV PRN (09:00)
[2022-11-18] MEDS ORDERED: CLARITIN 10 MG PO PRN (09:00)
[2022-11-18] MEDS ORDERED: Nubain 10 MG/ML IV PRN (09:00)
[2022-11-18] MEDS ORDERED: LANSINOH 40 GM TOP PRN (10:00)
[2022-11-18] MEDS ORDERED: Mylicon 80MG PO PRN (10:00)
[2022-11-18] MEDS ORDERED: Dextrose 5%-Lr IV Solution 1000 ML 1,000 ML IV SCH (10:00)
[2022-11-18] MEDS ORDERED: TORAdol 30 mg Injection IV PRN (10:53)
[2022-11-18 13:00] LABS: Appearance Clear (Clear); Bacteria None Seen /HPF (None Seen); Bilirubin Negative (Negative); Blood Negative (Negative); Epithelial Cells None Seen /HPF (None Seen); Glucose, Urine Negative (Negative); Hyaline Casts NONE SEEN /LPF (0-2); Ketones Negative (Negative); Leukocyte Esterase Negative (Negative); Nitrite Negative (Negative); Ph 7.5 (4.6-8.0); Protein,Urine Dip Negative (Negative); RBC 0-2 /HPF (0-5); Specific Gravity 1.015 (1.005-1.030); Urobilinogen 0.2 mg/dL (0.2); WBC 0-2 /HPF (0-5)
[2022-11-18] MEDS ORDERED: MEDICATION INTERVENTION MC SCH (13:30)
--- NOTE | 2022-11-18 13:43 | OP ---
SURGERY DATE/TIME: 11/18/2022 0808 PREOPERATIVE DIAGNOSES: 1) Term intrauterine . 2) History of prior section. 3) Gestational hypertension. 4) Desires permanent sterilization. POSTOPERATIVE DIAGNOSES: 1) Term intrauterine . 2) History of prior section. 3) Gestational hypertension. 4) Desires permanent sterilization. PROCEDURES: 1) Repeat low transverse section. 2) Bilateral tubal ligation. SURGEON: Estevan Lau M.D. QUANTITATIVE BLOOD LOSS: 883 ml. URINE OUTPUT: Approximate 200 ml of clear straw-colored urine. ANESTHESIA: Spinal by Korey Turner CRNA. SPECIMEN: Bilateral fallopian tube segments. DESCRIPTION OF PROCEDURE: After informed written consent was obtained, the patient was taken to the operating room. She had on the chart previously signed consent for sterilization on 10/05/2022 which was verified. She underwent spinal anesthesia. She was prepped and draped in the usual sterile fashion. Adequate anesthesia assessed and a low transverse skin incision was made by knife and carried down through the subcutaneous fat to the level of the fascia. The fascia was nicked on both sides of the midline and extended in horizontal using curved Mandel scissors. Next, the superior free edge of the fascia was grasped with Henrik clamps and the underlying rectus muscles were dissected free. The same was repeated inferiorly. The peritoneal cavity was opened horizontally and extended in blunt fashion. A low transverse uterine incision was made by knife and carried down to the level of the amniotic membranes which were carefully artificially ruptured and revealed clear fluid. A viable female was delivered from the vertex presentation. A nuchal cord x1 was reduced prior to delivery of the head. She had a strong cry immediately upon delivery. I bulb suctioned her oropharynx and nares. The cord was clamped and cut and she was handed off to the awaiting nursery team. The placenta was manually extracted from the uterine cavity and the uterus exteriorized. The uterine cavity was sponge curetted clean with lap sponge. The uterine incision was closed with #1 chromic in a running locked fashion with good closure and good hemostasis achieved. Next, the left fallopian tube was identified and followed down to the fimbrial end. It was grasped with a Emiliano and electrocautery was used to make a window in the mesoappendix. Chromic tie was then passed through the opening. Proximal and distal segments of the tube segments were ligated and the interceding tube segment was dissected free with Metzenbaum scissors. The lumen was cauterized and visualized on the remaining stumps both proximally and distally. Tubes were sent to pathology. The same was repeated on the right side with no complications. The posterior cul-de-sac was wiped free of blood and clot and the uterus was returned to the peritoneal cavity. Lateral gutters were wiped free of blood and clot with a moist lap sponge and the incision was carefully inspected and noted to be hemostatic with good closure at that level. Next, the fascia was closed with 0 Vicryl in running fashion with good closure and good hemostasis were achieved at this level as well. Subcutaneous fat was irrigated with warm, sterile saline. The subcutaneous fat was closed with 3-0 Vicryl interrupted sutures to close the space. Finally, the skin layer was closed with 4-0 undyed Vicryl in a running subcuticular fashion. Steri-Strips and occlusive dressing were placed over the incision. The patient was transferred to the recovery room in excellent condition.
[2022-11-19] MEDS: Docusate Sodium 100 MG PO SCH ×3 (00:10→21:22)
[2022-11-19 05:02] LABS: Absolute Neutrophil Ct (ANC) 8.67 x10^3/uL (1.4-6.9); BASOPHIL % 0.2 % (0.0-0.4); Basophil (Absolute #) 0.02 x10^3/uL (0-0.4); Eosinophil % 1.6 % (0.00-5.0); Eosinophil (Absolute #) 0.18 x10^3/uL (0-0.5); Hematocrit 31.2 % (35-47); Hemoglobin 10.5 g/dL (12.0-16.0); IMMATURE GRAN # 0.04 x10^3u/L (0.00-0.03); IMMATURE GRAN % 0.4 % (0.00-0.4); Lymphocyte (Absolute #) 1.63 x10^3/uL (1.0-4.6); Lymphocytes % 14.5 % (24.0-44.0); Mean Cell Volume 88.9 fL (78-100); Mean Corpuscular Hemoglobin 29.9 pg (26-32); Mean Corpuscular Hgb Concent. 33.7 g/dL (32-36); Monocyte (Absolute #) 0.69 x10^3/uL (0.0-1.3); Monocytes % 6.1 % (0.0-12.0); Neutrophil % 77.2 % (36.0-66.0); Platelet Count 200 x10^3/uL (150-450); Red Blood Count 3.51 x10^6/uL (4.1-5.4); Red Cell Distribution Width 13.4 % (11.5-14.0); White Blood Count 11.2 x10^3/uL (4.0-10.5)
[2022-11-19] MEDS ORDERED: NORCO 5/325 MG PO PRN (09:00)
[2022-11-19] MEDS: TYLENOL EXTRA STRENGTH 500 MG PO PRN (09:36)
[2022-11-19] MEDS ORDERED: IRON PO SCH (10:00)
[2022-11-19] MEDS ORDERED: PNV CALCIUM PO SCH (10:00)
[2022-11-19] MEDS ORDERED: FERREX 150 PO SCH (10:00)
[2022-11-19] MEDS ORDERED: [UNRECOGNIZED DRUG - OTHER] PO SCH (10:00)
[2022-11-19] MEDS ORDERED: FOLIC ACID PO SCH (10:00)
[2022-11-19] MEDS ORDERED: Adacel Vial IM ONE (10:00)
[2022-11-19 13:20] LABS: HBsAg Screen Negative (Negative)
[2022-11-19] MEDS: MOTRIN 400 MG PO PRN (15:27)
[2022-11-20] MEDS: TYLENOL EXTRA STRENGTH 500 MG PO PRN (03:49)
--- NOTE | 2022-11-20 08:30 | PCM.DS ---
Discharge Summary Date of Admission: 11/18/22 04:15 Admitting Physician: HILARIO AGUILAR Consults: Consults on Case 11/18/22 05:00 Notify Anesthesia Provider ROUTINE Notify Physician OF ADMISSION 11/18/22 09:03 Navigation ONCE Primary Care Provider: HILARIO AGUILAR Allergies Allergies No Known Drug Allergies Allergy (Verified 10/12/22 17:55) Hospital Summary - Hospital Course Hospital Course: patient had repeat with BTL on 11/18 with routine post-op care, no problems or concerns. - Vitals & Intake/Output Vital Signs: Vital Signs Temperature 98.5 F 11/20/22 03:00 Pulse Rate 134 H 11/20/22 03:00 Respiratory Rate 20 11/20/22 03:00 Blood Pressure 125/63 11/20/22 03:00 O2 Sat by Pulse Oximetry 98 11/20/22 03:00 Intake & Output: Intake & Output 11/17/22 11/18/22 11/19/22 11/20/22 11:59 11:59 11:59 11:59 Intake Total 400 650 Output Total 1058 1400 Balance -1058 -1000 650 Weight 112.491 kg - Lab Result Diagrams: 11/19/22 04:48 Lab Results-Last 24 Hrs: Lab Results-Last 24 Hours 11/18/22 Range/Units 04:42 Hep Bs Antigen Negative (Negative) Micro Results-Entire Visit: Microbiology 11/18/22 08:38 Urine Culture - Preliminary Catherized NO GROWTH TO DATE - Procedures and Test Procedures and Tests throughout Hospitalization: Therapy Orders & Screens 11/18/22 09:27 Standby ROUTINE Comment: Diagnosis: repeat section with tubal Discharge Exam General Appearance: no apparent distress Neurologic Exam: alert Respiratory Exam: normal breath sounds, lungs clear, No respiratory distress Cardiovascular Exam: regular rate/rhythm, normal heart sounds Gastrointestinal/Abdomen Exam: soft, other (incision clean, dry, intact), No tenderness, No mass Extremity Exam: normal inspection, normal range of motion Final Diagnosis/Problem List - Final Discharge Diagnosis/Problem (1) delivery delivered Current Visit: No Status: Acute Assessment & Plan: routine postop care Code(s): O82 - ENCOUNTER FOR DELIVERY WITHOUT INDICATION (2) Sterilization Current Visit: Yes Status: Acute Code(s): Z30.2 - ENCOUNTER FOR STERILIZATION (3) Chronic hypertension Current Visit: No Status: Acute Code(s): I10 - ESSENTIAL (PRIMARY) HYPERTENSION - Discharge Disposition: Home, Self-Care Condition: Stable Prescriptions: Continue Pnv,Calcium 72/Iron/Folic Acid [Pnv Plus Multivit Tab] 1 each PO DAILY Ferrous Sulfate [Iron] 325 mg PO DAILY Follow up with: HILARIO AGUILAR MD [Primary Care Provider] -
[2022-11-20] MEDS: MOTRIN 400 MG PO PRN (09:29)
[2022-11-20 14:18] VITALS: BP 133/79; PULSE 96; O2SAT 100
== END 2022-11-20 09:40 | disposition home or self-care (01) | DRG 785 ==
LOC: OB 04:14 → UNDOADMOB 04:14 → OBSVTOIN 04:15 → OB 04:15 → OBSVTOIN 08:47 → INTOOBSV 08:47
PROVIDERS: ADMIT Family Medicine; ATTEND Family Medicine
PROC: 10D00Z1 Extraction of Products of Conception, Low, Open Approach (ICD-10-PCS; principal; 2022-11-18)
PROC: 0UT70ZZ Resection of Bilateral Fallopian Tubes, Open Approach (ICD-10-PCS; 2022-11-18)
DX: O34.218 Maternal care for other type scar from previous cesarean delivery (principal); O13.4 Gestational [pregnancy-induced] hypertension without significant proteinuria, complicating childbirth; Z3A.39 39 weeks gestation of pregnancy; Z37.0 Single live birth; Z30.2 Encounter for sterilization; Z20.828 Contact with and (suspected) exposure to other viral communicable diseases
CPT/HCPCS: 36415; 62322; 64488; 76937; 76942; 80307; 81001; 81003; 85025; 85610; 85730; 86850; 86900; 86901; 87086; 87340; 90471; 90715; 94799; J0690; J2274; J2405; J2590; L0625; A9270-GY

== ENCOUNTER 2023-07-28 14:51 | Emergency (ER) | payer OTHER ==
[2023-07-28 16:04] VITALS: PULSE 104; TEMP 98.3
[2023-07-28 16:18] VITALS: O2SAT 98
[2023-07-28 17:00] LABS: Absolute Neutrophil Ct (ANC) 5.37 x10^3/uL (1.4-6.9); BASOPHIL % 0.3 % (0.0-0.4); Basophil (Absolute #) 0.03 x10^3/uL (0-0.4); Eosinophil (Absolute #) 0.18 x10^3/uL (0-0.5); Hematocrit 33.4 % (35-47); Hemoglobin 11.2 g/dL (12.0-16.0); IMMATURE GRAN # 0.03 x10^3u/L (0.00-0.03); IMMATURE GRAN % 0.3 % (0.00-0.4); Lymphocytes % 32.2 % (24.0-44.0); Mean Cell Volume 84.1 fL (78-100); Mean Corpuscular Hemoglobin 28.2 pg (26-32); Mean Corpuscular Hgb Concent. 33.5 g/dL (32-36); Mean Platelet Volume 8.7 fL (7.5-11.0); Monocyte (Absolute #) 0.49 x10^3/uL (0.0-1.3); Monocytes % 5.4 % (0.0-12.0); Neutrophil % 59.8 % (36.0-66.0); Platelet Count 326 x10^3/uL (150-450); Red Blood Count 3.97 x10^6/uL (4.1-5.4); Red Cell Distribution Width 12.3 % (11.5-14.0)
[2023-07-28] MEDS ORDERED: Sodium Chloride 0.9% 1000 ML 1,000 ML ONE (17:02)
[2023-07-28] MEDS: Sodium Chloride 0.9% 1000 ML 1,000 ML IV STA (17:07)
[2023-07-28 17:17] LABS: ALBUMIN 4.3 g/dL (3.5-5.0); ANION GAP 10.7 MEQ/L (5-15); BILIRUBIN,TOTAL 0.2 mg/dL (0.2-1.3); Calcium 9.1 mg/dL (8.4-10.2); Creatinine 1 0.49 mg/dL (0.52-1.04); EST GLOMERULAR FILTRATION RATE 130.8 ML/MIN; Potassium 4.1 mmol/L (3.5-5.1); Total Protein 7.4 g/dL (6.3-8.2)
[2023-07-28 17:23] LABS: HCG SERUM TEST NEGATIVE (NEGATIVE)
[2023-07-28] MEDS: PROVERA10 MG PO STA (17:38)
[2023-07-28 18:40] VITALS: BP 140/109
--- NOTE | 2023-07-28 18:49 | ERPHSYRPT ---
- History of Present Illness Time Seen by Provider: 07/28/23 15:46 Patient Subjective Stated Complaint: Pt states that she gave 8 months ago and is and had her first period last month and then she started the next one this past Wednesday and states that she is bleeding an excessive amount Triage Nursing Assessment: Pt brought self to the ER, hypertensive, denies pain, pulses normal, skin n/w/d, walked to the ER with a stable gait, no difficulty breathing, states that she is wearing a tampon and a pad and has to change both about every hour, doesn't appear to be in any distress Physician History: 27-year-old healthy female presented in the ER with chief complaint of heavy menstrual cycle. Patient is 8 months , breast-feeding and started her cycle last month which was only for few days, this time it started 4 days ago and is having heavy bleeding. Patient reports passing clots. Reports tampon/pad every hour to 2-hour and gradually worsening. Denies any chest pain palpitations or shortness of breath. Denies any dizziness or lightheadedness. No pelvic or abdominal cramping. Denies any history of abnormal uterine bleeding before. Not taking any blood thinners. Allergies/Adverse Reactions: No Known Drug Allergies Allergy (Verified 07/28/23 16:04) Hx Tetanus, Diphtheria Vaccination/Date Given: Yes Hx Influenza Vaccination/Date Given: Yes Hx Pneumococcal Vaccination/Date Given: No Travel Risk - International Travel Have you traveled outside of the country in past 3 weeks: No - Coronavirus Screening Are you exhibiting any of the following symptoms?: No Close contact with a COVID-19 positive Pt in past 14-21 Days: No - Vaccine Status Have you recieved a Covid-19 vaccination: No - Review of Systems Constitutional: No Symptoms Eyes: No Symptoms Ears, Nose, & Throat: No Symptoms Respiratory: No Symptoms Cardiac: No Symptoms Abdominal/Gastrointestinal: No Symptoms Genitourinary Symptoms: Vaginal Bleeding Musculoskeletal: No Symptoms Skin: No Symptoms Neurological: No Symptoms Psychological: No Symptoms Endocrine: No Symptoms Hematologic/Lymphatic: No Symptoms - Past Medical History Pertinent Past Medical History: No Neurological History: No Pertinent History ENT History: No Pertinent History Cardiac History: No Pertinent History Respiratory History: No Pertinent History Endocrine Medical History: No Pertinent History Musculoskeletal History: No Pertinent History GI Medical History: No Pertinent History History: No Pertinent History Psycho-Social History: No Pertinent History Female Reproductive Disorders: No Pertinent History - Past Surgical History Past Surgical History: Yes Neuro Surgical History: No Pertinent History Cardiac: No Pertinent History Respiratory: No Pertinent History Gastrointestinal: Cholecystectomy Genitourinary: No Pertinent History Musculoskeletal: No Pertinent History Female Surgical History: Section Other Surgical History: previous csx times 2 - Social History Smoking Status: Never smoker Exposure to second hand smoke: No Drug Use: none Patient Lives Alone: No Significant Family History: no pertinent family hx - Female History Hx Now: No - Nursing Vital Signs Nursing Vital Signs: Initial Vital Signs Temperature 98.3 F 07/28/23 15:53 Pulse Rate 104 H 07/28/23 15:53 Blood Pressure 146/94 07/28/23 15:53 O2 Sat by Pulse Oximetry 97 07/28/23 15:53 Pain Scale Pain Intensity 0 - Physical Exam General Appearance: no apparent distress, alert Eye Exam: PERRL/EOMI Neck Exam: normal inspection, full range of motion Respiratory Exam: normal breath sounds, lungs clear Cardiovascular Exam: regular rate/rhythm, normal heart sounds Gastrointestinal/Abdomen Exam: soft, normal bowel sounds, No tenderness Pelvic Exam: normal external exam, vaginal bleeding (Small amount of dark blood with no clots in the vaginal vault), No adnexal tenderness, No adnexal mass, No cervical motion tenderness Rectal Exam: deferred Back Exam: normal inspection, normal range of motion, No CVA tenderness Extremity Exam: normal inspection, normal range of motion Neurologic Exam: alert, oriented x 3, cooperative Skin Exam: normal color SpO2 Interpretation: normal SpO2: 98 O2 Delivery: Room Air Ordered Tests: Medication Summary Discontinued Medications Generic Name Dose Route Start Last Admin Trade Name Freq PRN Reason Stop Dose Admin Sodium Chloride 1,000 mls @ 999 mls/hr 07/28/23 16:49 07/28/23 18:08 Sodium Chloride 0.9% 1000 Ml IV 07/28/23 17:49 Infused .Q1H1M STA Infusion Sodium Chloride Confirm 07/28/23 17:02 Sodium Chloride 0.9% 1000 Ml Administered 07/28/23 17:03 Dose 1,000 mls @ ud .ROUTE .STK-MED ONE Medroxyprogesterone Acetate 10 mg 07/28/23 16:51 07/28/23 17:38 Medroxyprogesterone Acet 10 Mg Tablet PO 07/28/23 16:52 10 mg ONCE STA Administration Lab/Rad Data: Laboratory Result Diagrams 07/28/23 16:55 07/28/23 16:55 Laboratory Results 07/28/23 07/28/23 07/28/23 Range/Units 16:55 16:55 16:55 WBC 9.0 (4.0-10.5) x10^3/uL RBC 3.97 L (4.1-5.4) x10^6/uL Hgb 11.2 L (12.0-16.0) g/dL Hct 33.4 L (35-47) % MCV 84.1 (78-100) fL MCH 28.2 (26-32) pg MCHC 33.5 (32-36) g/dL RDW 12.3 (11.5-14.0) % Plt Count 326 (150-450) x10^3/uL MPV 8.7 (7.5-11.0) fL Gran % 59.8 (36.0-66.0) % Immature Gran % (Auto) 0.3 (0.00-0.4) % Nucleat RBC Rel Count 0.0 (0.00-0.1) % Eos # (Auto) 0.18 (0-0.5) x10^3/uL Immature Gran # (Auto) 0.03 (0.00-0.03) x10^3u/L Absolute Lymphs (auto) 2.90 (1.0-4.6) x10^3/uL Absolute Monos (auto) 0.49 (0.0-1.3) x10^3/uL Absolute Nucleated RBC 0.00 (0.00-0.01) x10^3u/L Lymphocytes % 32.2 (24.0-44.0) % Monocytes % 5.4 (0.0-12.0) % Eosinophils % 2.0 (0.00-5.0) % Basophils % 0.3 (0.0-0.4) % Absolute Granulocytes 5.37 (1.4-6.9) x10^3/uL Basophils # 0.03 (0-0.4) x10^3/uL Sodium 138 (137-145) mmol/L Potassium 4.1 (3.5-5.1) mmol/L Chloride 107 (98-107) mmol/L Carbon Dioxide 25 (22-30) mmol/L Anion Gap 10.7 (5-15) MEQ/L BUN 15 (7-17) mg/dL Creatinine 0.49 L (0.52-1.04) mg/dL Estimated GFR 130.8 ML/MIN Glucose 101 (74-106) mg/dL Calcium 9.1 (8.4-10.2) mg/dL Total Bilirubin 0.20 (0.2-1.3) mg/dL AST 22 (14-36) U/L ALT 20 (0-35) U/L Alkaline Phosphatase 75 (38-126) U/L Serum Total Protein 7.4 (6.3-8.2) g/dL Albumin 4.3 (3.5-5.0) g/dL Serum HCG, Qual NEGATIVE (NEGATIVE) - Progress Progress: improved Air Movement: good Progress Note: 07/28/23 18:58 27-year-old is evaluated for heavy cycle. Pelvic exam did not show excessive pooling in the vaginal vault. Baseline workup showed hemoglobin of 11 which is around baseline. Unremarkable chemistries. Patient is not . She is given Provera in here. Will continue with Provera to go home. I have discussed with Dr. Aguilar patient's primary care and will be, reviewed history, workup and agreed with sending her home on Provera. I have discussed results of workup with patient and plan of discharge which she understands and agrees. Blood Culture(s) Obtained: No Antibiotics given: No Counseled pt/family regarding: lab results, diagnosis, need for follow-up Medical Desision Making - Diagnostic Testing Diagnostic test were ordered, analyzed, and reviewed by me: Yes - Risk of complications The pt has a mod risk of morbidity or mortality based on: Need for prescription drug management - Departure Departure Disposition: Home Clinical Impression: Abnormal uterine bleeding (AUB), Menorrhagia Condition: Stable Critical Care Time: No Referrals: HILARIO AGUILAR MD [Primary Care Provider] - Follow up with PCP 1 day Instructions: Heavy Periods (DC) Additional Instructions: Plenty of fluids to keep yourself well-hydrated. Follow-up with your primary OB/primary care for reevaluation in 1 to 2 days. Return to ER for worsening bleeding like having 1-2 pads every hourly, feeling dizzy lightheaded, chest pain palpitations or shortness of breath etc. Prescriptions: Medroxyprogesterone Acetate [Provera] 5 mg PO DAILY 10 Days #10 tablet
== END 2023-07-28 19:08 | disposition home or self-care (01) ==
LOC: ED 14:51
DX: N92.0 Excessive and frequent menstruation with regular cycle (principal); N93.9 Abnormal uterine and vaginal bleeding, unspecified; Z28.310 Unvaccinated for COVID-19
CPT/HCPCS: 36000; 36415; 80053; 84703; 85025; 99283; A9270-GY